=== PATIENT | female | born 1945 | race Two or more races ===

== ENCOUNTER 2025-06-09 14:17 | Inpatient (IN) | payer MEDICARE ==
[~2025-06-09] VITALS: Ht 175.3 cm; Wt 113.9 kg
[2025-06-09] MEDS: DILTIAZEM HCL 25 MG IV IV ONE (14:50)
[2025-06-09] MEDS ORDERED: DILTIAZEM HCL 25 MG IV ONE (14:53)
[2025-06-09] MEDS: IV LR 1000 ML 1,000 ML BAG IV ONE (15:00)
[2025-06-09] MEDS ORDERED: SOLI10TA7 PO (15:24)
[2025-06-09] MEDS ORDERED: VALS1TAB7 PO (15:24)
[2025-06-09 15:38] LABS: PLATELET COUNT (AUTO) 356 K/uL (150-450); RED BLOOD CELL COUNT(AUTO) 4.20 MIL/uL (4.0-5.2); RED CELL DISTRIBUTION WIDTH 17.7 % (11.5-15.0); WHITE BLOOD COUNT (AUTO) 8.5 K/uL (4.3-11.0)
[2025-06-09 15:40] LABS: CALCIUM, SERUM 9.1 mg/dL (8.5-10.1); CREATININE 1.7 mg/dL (0.6-1.3); SODIUM SERUM 146 mmol/L (136-145); UREA NITROGEN, BLOOD 23 mg/dL (7-18)
[2025-06-09 15:46] LABS: ASPARTATE AMINOTRANSFERASE 23 U/L (15-37); TOTAL PROTEIN, SERUM 7.5 g/dL (6.4-8.2)
[2025-06-09] MEDS: DILTIAZEM HCL 30 MG TABLET PO ONE (15:58)
[2025-06-09] MEDS ORDERED: ACETAMINOPHEN 325 MG TABLET PO PRN (18:30)
[2025-06-09] MEDS ORDERED: Z GUARD REMEDY 4 OZ OINT TP PRN (18:30)
[2025-06-09] MEDS ORDERED: ONDANSETRON HCL/PF 4 MG/2 ML VIAL IVP PRN (18:30)
[2025-06-09] MEDS ORDERED: MAGNESIUM HYDROXIDE 30 ML UDC PO PRN (18:30)
[2025-06-09] MEDS ORDERED: MAG HYDROX/AL HYDROX/SIMETH 30 ML UDC PO PRN (18:30)
[2025-06-09 20:00] VITALS: BP 142/107; TEMP 98.1; O2SAT 95
[2025-06-09] MEDS: FUROSEMIDE 40 MG/4 ML VIAL IV ONE (20:38)
[2025-06-10] VITALS: BP 146/84; TEMP 98; O2SAT 96
[2025-06-10 04:00] VITALS: BP 133/98; TEMP 98; O2SAT 96
[2025-06-10] MEDS ORDERED: AMIODARONE 450 MG in IV D5W 250 ML IV PRN (07:30)
[2025-06-10 07:49] LABS: PLATELET COUNT (AUTO) 357 K/uL (150-450); RED BLOOD CELL COUNT(AUTO) 4.25 MIL/uL (4.0-5.2); RED CELL DISTRIBUTION WIDTH 17.7 % (11.5-15.0); WHITE BLOOD COUNT (AUTO) 8.4 K/uL (4.3-11.0)
[2025-06-10 08:00] VITALS: BP_SYST 145; BP_SYST 148; BP_DIAS 57; BP_DIAS 98; TEMP 97.5; TEMP 98.2; O2SAT 96; O2SAT 99
[2025-06-10] MEDS: AMIODARONE 150 MG in IV D5W 100 ML IV ONE (08:05)
[2025-06-10 08:11] LABS: CALCIUM, SERUM 9.1 mg/dL (8.5-10.1); CREATININE 1.5 mg/dL (0.6-1.3); PHOSPHORUS 3.6 mg/dL (2.5-4.9); SODIUM SERUM 143.0 mmol/L (136-145); UREA NITROGEN, BLOOD 18.0 mg/dL (7-18)
[2025-06-10] MEDS: POTASSIUM CHLORIDE 20 MEQ TAB.PRT.SR PO SCH (08:16)
[2025-06-10] MEDS: FUROSEMIDE 40 MG/4 ML VIAL IV SCH (08:16)
[2025-06-10] MEDS: APIXABAN 2.5 MG TABLET PO SCH (08:16)
[2025-06-10 08:19] LABS: LDL 111.0 mg/dL (0-99)
[2025-06-10] MEDS: AMIODARONE 450 MG in IV D5W 241 ML IV PRN (08:29)
[2025-06-10 12:00] VITALS: BP 138/70; TEMP 97.5; O2SAT 96
[2025-06-10 16:00] VITALS: BP 124/68; TEMP 97.8; O2SAT 96
[2025-06-10 20:00] VITALS: BP 100/46; TEMP 99.3; O2SAT 96
[2025-06-11] VITALS (8 sets, daily range): BP systolic 104–152; BP diastolic 80–112; TEMP 97.5–98.2; O2SAT 96–97
[2025-06-11 06:41] LABS: ASPARTATE AMINOTRANSFERASE 31 U/L (15-37); CALCIUM, SERUM 9.1 mg/dL (8.5-10.1); CREATININE 1.8 mg/dL (0.6-1.3); PHOSPHORUS 3.8 mg/dL (2.5-4.9); SODIUM SERUM 146 mmol/L (136-145); TOTAL PROTEIN, SERUM 7.0 g/dL (6.4-8.2); UREA NITROGEN, BLOOD 23 mg/dL (7-18)
[2025-06-11 07:19] LABS: CREATINE KINASE, TOTAL 77 U/L (26-192)
[2025-06-11] MEDS: POTASSIUM CHLORIDE 20 MEQ TAB.PRT.SR PO SCH (09:33)
[2025-06-11] MEDS: DILTIAZEM HCL CD 240 MG PO SCH (09:33)
[2025-06-11] MEDS: FUROSEMIDE 40 MG/4 ML VIAL IV SCH (09:33)
[2025-06-11] MEDS: DIGOXIN INJ 0.5 MG/2 ML AMPUL IV SCH (12:13)
[2025-06-11 17:44] LABS: PLATELET COUNT (AUTO) 346 K/uL (150-450); RED BLOOD CELL COUNT(AUTO) 4.20 MIL/uL (4.0-5.2); RED CELL DISTRIBUTION WIDTH 17.7 % (11.5-15.0); WHITE BLOOD COUNT (AUTO) 8.6 K/uL (4.3-11.0)
[2025-06-12] VITALS: BP 128/76; TEMP 98.2; O2SAT 96
[2025-06-12 04:00] VITALS: BP 132/82; TEMP 97.8; O2SAT 96
[2025-06-12 06:56] LABS: PLATELET COUNT (AUTO) 338 K/uL (150-450); RED BLOOD CELL COUNT(AUTO) 4.26 MIL/uL (4.0-5.2); RED CELL DISTRIBUTION WIDTH 17.4 % (11.5-15.0); WHITE BLOOD COUNT (AUTO) 7.9 K/uL (4.3-11.0)
[2025-06-12 07:09] LABS: ASPARTATE AMINOTRANSFERASE 21.0 U/L (15-37); CALCIUM, SERUM 8.8 mg/dL (8.5-10.1); CREATININE 2.0 mg/dL (0.6-1.3); PHOSPHORUS 3.8 mg/dL (2.5-4.9); SODIUM SERUM 146.0 mmol/L (136-145); TOTAL PROTEIN, SERUM 6.8 g/dL (6.4-8.2); UREA NITROGEN, BLOOD 29.0 mg/dL (7-18)
[2025-06-12 08:00] VITALS: BP 132/66; TEMP 97.9; O2SAT 96
[2025-06-12 12:00] VITALS: BP 127/90; TEMP 97.5; O2SAT 96
[2025-06-12] MEDS: DIGOXIN 0.125 MG TABLET PO SCH (13:07)
[2025-06-12 14:00] LABS: APPEARANCE,URINE CLEAR (CLEAR); BLOOD, URINE NEGATIVE Ery/uL (NEGATIVE); LEUKOCYTE ESTERASE ,URINE NEGATIVE (NEGATIVE); NITRITE, URINE NEGATIVE (NEGATIVE); UGLUCOSE NEGATIVE (NEGATIVE)
[2025-06-12 14:07] LABS: PTH, INTACT 113 pg/mL (15-65)
[2025-06-12 14:10] LABS: CREATININE, URINE 116.7 MG/DL (30.0-125.0); URINE SODIUM, RANDOM 38.0 mmol/l (40-220); URINE TOTAL PROTEIN 41.6 mg/dL (0-11.9)
[2025-06-12 14:41] LABS: ADD URINE CULTURE NO; SQUAMOUS EPITHELIAL CELL,UR Moderate /HPF (None Seen)
[2025-06-12 15:18] LABS: EOSINOPHIL,URINE None Seen
[2025-06-12 16:00] VITALS: BP 144/82; TEMP 97.3; O2SAT 96
[2025-06-12 20:00] VITALS: BP 134/68; TEMP 97.8; O2SAT 95
[2025-06-12] MEDS: ZOLPIDEM TARTRATE 5 MG TABLET PO PRN (21:39)
[2025-06-13] VITALS: BP 123/106; TEMP 97.9; O2SAT 97
[2025-06-13 04:00] VITALS: BP 127/96; TEMP 97.9; O2SAT 96
[2025-06-13 06:47] LABS: PLATELET COUNT (AUTO) 339 K/uL (150-450); RED BLOOD CELL COUNT(AUTO) 4.36 MIL/uL (4.0-5.2); RED CELL DISTRIBUTION WIDTH 17.6 % (11.5-15.0); WHITE BLOOD COUNT (AUTO) 8.0 K/uL (4.3-11.0)
[2025-06-13 07:29] LABS: ASPARTATE AMINOTRANSFERASE 18.0 U/L (15-37); CALCIUM, SERUM 9.0 mg/dL (8.5-10.1); CREATININE 1.6 mg/dL (0.6-1.3); PHOSPHORUS 3.8 mg/dL (2.5-4.9); SODIUM SERUM 145.0 mmol/L (136-145); TOTAL PROTEIN, SERUM 6.9 g/dL (6.4-8.2); UREA NITROGEN, BLOOD 28.0 mg/dL (7-18)
[2025-06-13 08:00] VITALS: BP 141/95; TEMP 98.6; O2SAT 98
[2025-06-13 12:10] VITALS: BP 134/76; TEMP 97.6; O2SAT 97
[2025-06-13] MEDS ORDERED: DIGO125T PO (12:46)
[2025-06-13] MEDS ORDERED: DILT240C88 PO (12:46)
[2025-06-13] MEDS ORDERED: APIX2.5T PO (12:46)
== END 2025-06-13 17:09 | disposition home or self-care (01) | DRG 308 ==
LOC: ER 14:40 → TELE1 18:23 → TELE-TD 06-10 08:48 → TELE1 06-12 10:09 → MEDSG1 06-13 09:37
PROVIDERS: ADMIT Nurse Practitioner Acute Care; ATTEND Student in an Organized Health Care Education/Training Program
DX: I48.91 Unspecified atrial fibrillation (principal); I50.43 Acute on chronic combined systolic (congestive) and diastolic (congestive) heart failure; N17.0 Acute kidney failure with tubular necrosis; J96.01 Acute respiratory failure with hypoxia; I13.0 Hypertensive heart and chronic kidney disease with heart failure and stage 1 through stage 4 chronic kidney disease, or unspecified chronic kidney disease; E87.0 Hyperosmolality and hypernatremia; I16.0 Hypertensive urgency; N18.9 Chronic kidney disease, unspecified; M19.90 Unspecified osteoarthritis, unspecified site; R73.03 Prediabetes; Z79.899 Other long term (current) drug therapy; E66.9 Obesity, unspecified; Z68.37 Body mass index [BMI] 37.0-37.9, adult; N28.1 Cyst of kidney, acquired; G72.9 Myopathy, unspecified
CPT/HCPCS: 36415; 71045-TC; 76770-TC; 80048-TC; 80053-TC; 80061-TC; 80076-TC; 81001; 82550-TC; 82570-TC; 83735-TC; 83880; 83970; 84100-TC; 84155; 84165; 84300-TC; 84439-TC; 84443-TC; 84484-TC; 85025-TC; 93307-TC; 93970-TC; 97112-TC; 97116-TC; 97530-TC; A4223; G0378; J0282; J1160; J1938; J3490; J7050; J7060